=== PATIENT | female | born 1955 | race Caucasian/White ===

== ENCOUNTER 2017-02-02 09:18 | Emergency (ER) | payer MEDICAID, OTHER ==
--- NOTE | 2017-02-02 09:51 | EDPHY ---
H & P Stated Complaint: cough Time Seen by Provider: 02/02/17 09:39 HPI/ROS: Chief Complaint: Cough, shortness of breath HPI: 62-year-old woman with 3 days of upper respiratory sites of symptoms with cough occasionally productive of yellow phlegm. This morning she developed worsening shortness of breath with wheezing. No fevers or chills. No nausea or vomiting. 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 No chest pain. No recent travel or periods of immobility. No calf pain or swelling. ROS: 10 point Review of Systems is negative except as noted in the HPI. PMH: None Medications: None Allergies: No known drug allergies Social History: No smoking, occasional alcohol, no recreational drug use Family History: non-contributory Physical Exam: Gen: Awake, Alert, No Distress HEENT: Nose: no rhinorrhea Eyes: PERRLA, EOMI Mouth: Moist mucosa Neck: Supple, no JVD Chest: nontender, diffuse expiratory wheezing with bibasilar crackles, decreased air movement Heart: S1, S2 normal, no murmur Abd: Soft, non-tender, no guarding Back: no CVA tenderness, no midline tenderness Ext: no edema, non-tender Skin: no rash Neuro: CN II-XII intact, Sensation grossly intact, Strength 5/5 in bilateral upper and lower extremities - Personal History Current Tetanus/Diphtheria Vaccine: Unsure Tetanus Vaccine Date: <10 years - Medical/Surgical History Hx Asthma: No Hx Chronic Respiratory Disease: No Hx Diabetes: No Hx Cardiac Disease: No Hx Renal Disease: No Hx Cirrhosis: No Hx Alcoholism: No Hx HIV/AIDS: No Hx Splenectomy or Spleen Trauma: No Other PMH: appy - Social History Smoking Status: Never smoked Constitutional: Initial Vital Signs Temperature (C) 36.5 C 02/02/17 09:24 Heart Rate 90 02/02/17 09:24 Respiratory Rate 24 H 02/02/17 09:24 Blood Pressure 122/73 H 02/02/17 09:24 O2 Sat (%) 92 02/02/17 09:24 O2 Delivery Mode Room Air Allergies/Adverse Reactions: codeine Allergy (Verified 02/02/17 09:22) Home Medications: Medication Instructions Recorded Albuterol [Proventil Inhaler HFA 1 - 2 puffs IH Q4H PRN #1 mdi 02/02/17 (*)] Inhaler, Assist Devices [Space 1 each MC Q4H PRN #1 spacer 02/02/17 Chamber Plus] predniSONE 60 mg PO DAILY #9 tab 02/02/17 Medical Decision Making - Diagnostics Imaging Results: Imaging Impressions Chest X-Ray 02/02/17 09:46 Impression: Lung hyperexpansion with mild perihilar bronchial wall thickening raises the possibility of underlying reactive airways' disease. There is no focal infiltrate. ED Course/Re-evaluation: Chest x-ray is negative for acute infection. Findings consistent with bronchitis. Patient is improved after albuterol and Atrovent neb. Lungs are now clear. Symptoms consistent with acute bronchitis. Will discharge with albuterol MDI with spacer. Also given a prescription for prednisone. She is refusing to take any at this time. She will follow up with primary care physician. - Data Points Medications Given: Discontinued Medications Albuterol/Ipratropium (Duoneb) 3 ml IH EDNOW ONE Stop: 02/02/17 11:15 Last Admin: 02/02/17 11:19 Dose: 3 ml Departure - Departure Disposition: Home, Routine, Self-Care Clinical Impression: Acute bronchitis Condition: Good Instructions: Acute Bronchitis (ED), Wheezing (ED) Additional Instructions: May use your inhaler 1-2 puffs every 4 hours as needed for wheezing. Always use a spacer using your inhaler. Follow up with your primary care physician in 3-4 days if symptoms are not improving. Referrals: Malena Hinson MD [Primary Care Provider] - As per Instructions Prescriptions: Albuterol [Proventil Inhaler HFA (*)] 1 - 2 puffs IH Q4H PRN #1 mdi PRN Reason: Wheezing Inhaler, Assist Devices [Space Chamber Plus] 1 each MC Q4H PRN #1 spacer PRN Reason: Wheezing predniSONE 60 mg PO DAILY #9 tab
[2017-02-02] MEDS ORDERED: IPRATROPIUM/ALBUTEROL 3 ML DEYVIAL IH ONE (11:14)
[2017-02-02 12:25] VITALS: BP 134/87; PULSE 88; RESP 16; TEMP 96.8; O2SAT 95
== END 2017-02-02 12:26 | disposition home or self-care (01) ==
DX: J20.9 Acute bronchitis, unspecified (principal)

== ENCOUNTER → 2017-07-15 | Outpatient (CLI) | payer MEDICAID | LOC: BRMIMAGING 13:22 | PROVIDERS: ATTEND Advanced Practice Midwife | DX: Z13.820 Encounter for screening for osteoporosis (principal); M81.0 Age-related osteoporosis without current pathological fracture ==

== ENCOUNTER 2018-04-25 09:52 | Emergency (ER) | payer MEDICAID ==
[2018-04-25 10:10] VITALS: BP 93/57
--- NOTE | 2018-04-25 10:24 | EDPHY ---
H & P Time Seen by Provider: 04/25/18 10:01 HPI/ROS: CHIEF COMPLAINT: Finger pain HISTORY OF PRESENT ILLNESS: Patient is a 63-year-old female here with finger pain after she cut her finger with gardening jaya yesterday. She was seen by her primary care physician ordered an x-ray which was done but not read yesterday. She was told to follow up if she noticed any increased inflammation to the area. States she noticed increased swelling to the area so followed up here. Her tetanus is up-to-date. She is nose no fever or chills. She has no loss of range of motion of the finger. REVIEW OF SYSTEMS: Constitutional: No fever, no chills. Eyes: No discharge. ENT: No sore throat. Cardiovascular: No chest pain, no palpitations. Respiratory: No cough, no shortness of breath. Gastrointestinal: No abdominal pain, no vomiting. Genitourinary: No hematuria. Musculoskeletal: No back pain. Skin: No rashes. Neurological: No headache Smoking Status: Never smoked Physical Exam: General Appearance: Alert and no distress. Eyes: Pupils equal and round no injection. Respiratory: Chest is nontender, lungs are clear to auscultation. Cardiac: regular rate and rhythm. Gastrointestinal: Abdomen is soft and nontender, no masses, bowel sounds normal. Musculoskeletal: Neck is supple and nontender. Extremities have full range of motion and are nontender. Skin: No rashes or lesions. Constitutional: Initial Vital Signs Temperature (C) 36.6 C 04/25/18 09:56 Heart Rate 82 04/25/18 09:56 Respiratory Rate 18 04/25/18 09:56 Blood Pressure 93/57 L 04/25/18 09:56 O2 Sat (%) 97 04/25/18 09:56 O2 Delivery Mode Room Air Allergies/Adverse Reactions: codeine Allergy (Verified 04/25/18 09:55) Home Medications: Medication Instructions Recorded Albuterol [Proventil Inhaler HFA 1 - 2 puffs IH Q4H PRN #1 mdi 02/02/17 (*)] Inhaler, Assist Devices [Space 1 each MC Q4H PRN #1 spacer 02/02/17 Chamber Plus] Cephalexin [Keflex (*)] 500 mg PO QID 7 Days #28 cap 04/25/18 Medical Decision Making ED Course/Re-evaluation: Patient here with laceration to the left finger 1 day ago. There is mild erythema surrounding the superficial laceration. There is no underlying fracture seen on x-ray. She is afebrile not tachycardic. I have low suspicion for cellulitis that she does have erythema so was prescribed Keflex which I suggest she start in 24 hr if inflammation does not resolve with Motrin and ice. Differential Diagnosis: Fracture, dislocation, foreign body, cellulitis Departure - Departure Disposition: Home, Routine, Self-Care Clinical Impression: Finger laceration Condition: Good Instructions: Finger Laceration (ED) Additional Instructions: There is no evidence of broken bone on her x-ray. A prescribing an antibiotic which he may start in 24 hr if the redness does not resolve with ice and ibuprofen. He developed fever, worsening swelling or other worrisome symptoms please return to the ER. Referrals: Malena Hinson MD [Primary Care Provider] - As per Instructions Prescriptions: Cephalexin [Keflex (*)] 500 mg PO QID 7 Days #28 cap
== END 2018-04-25 11:50 | disposition home or self-care (01) ==
DX: S61.213A Laceration without foreign body of left middle finger without damage to nail, initial encounter (principal)